=== PATIENT | male | born 1970 ===

== ENCOUNTER → 2020-08-03 | Outpatient (CLI) | payer OTHER ==
[~2020-08-03] MED LIST: ALBUTEROL INH; ASPI-231; ATROVENT; LISI-646; METO-169
== END | disposition home or self-care (01) ==
LOC: LAB 14:11
PROVIDERS: ATTEND Nurse Practitioner Family
DX: U07.1 COVID-19 (principal)
CPT/HCPCS: C9803; U0003